=== PATIENT | female | born 1975 | race Caucasian/White ===

== ENCOUNTER → 2018-03-30 | Outpatient (CLI) | payer OTHER ==
[~2018-03-30] MED LIST: HYDACE5 PO; METF500 PO; METO50 PO; OLME20 PO; YASMIN
[2018-03-31 06:27] LABS: Candida species (DNA Probe) Negative (NEGATIVE); G. vaginalis (DNA Probe) Positive (NEGATIVE); T. vaginalis (DNA Probe) Negative (NEGATIVE)
== END ==
LOC: LAB SHORT 17:54 → LAB 17:54
PROVIDERS: Obstetrics & Gynecology
DX: N76.0 Acute vaginitis (principal)
CPT/HCPCS: 87480; 87510; 87660

== ENCOUNTER → 2018-05-18 | Outpatient (CLI) | payer OTHER ==
[2018-05-19 10:40] LABS: Candida species (DNA Probe) Negative (NEGATIVE); G. vaginalis (DNA Probe) Positive (NEGATIVE); T. vaginalis (DNA Probe) Negative (NEGATIVE)
== END | disposition home or self-care (01) ==
LOC: LAB 15:24 → LAB SHORT 15:24
PROVIDERS: Obstetrics & Gynecology
DX: N76.0 Acute vaginitis (principal)
CPT/HCPCS: 87480; 87510; 87660

== ENCOUNTER → 2019-02-11 | Outpatient (CLI) | payer OTHER ==
[2019-02-11 14:19] LABS: Candida species (DNA Probe) Negative (NEGATIVE); G. vaginalis (DNA Probe) Negative (NEGATIVE); T. vaginalis (DNA Probe) Negative (NEGATIVE)
== END | disposition home or self-care (01) ==
LOC: LAB 12:58 → LAB SHORT 12:58
PROVIDERS: Obstetrics & Gynecology
DX: N76.0 Acute vaginitis (principal)
CPT/HCPCS: 87480; 87510; 87660

== ENCOUNTER → 2019-04-01 | Outpatient (CLI) | payer OTHER ==
[~2019-04-01] MED LIST changes: +Budeprion Xl300 MG PO; +Fluvoxamine Ma100 MG PO; +Inderal40 MG PO; +LOSA50 PO; +Ocella Tablet1 EACH PO; +PRAZ5 PO; +SPIR50 PO; +Seroquel Xr400 MG PO; +VITAMIN B122500 MCG PO
[2019-04-01 13:19] LABS: BASOPHILS ABSOLUTE AUTO 0.11 K/mm3 (0.00-0.23); BASOPHILS PERCENT AUTO 1 % (0-2); EOSINOPHILS ABSOLUTE AUTO 0.27 K/mm3 (0.00-0.68); EOSINOPHILS PERCENT AUTO 2 % (0-6); Hematocrit 36.8 % (33.0-51.0); Hemoglobin 11.1 g/dL (11.5-16.0); IMMATURE GRAN ABSOLUTE AUTO 0.06 K/mm3 (0.00-0.10); IMMATURE GRAN PERCENT AUTO 1 % (0-1); LYMPHOCYTES ABSOLUTE AUTO 4.22 K/mm3 (0.84-5.20); LYMPHOCYTES PERCENT AUTO 33 % (21-46); MONOCYTES ABSOLUTE AUTO 0.69 K/mm3 (0.16-1.47); MONOCYTES PERCENT AUTO 5 % (4-13); Mean Corpuscular HGB Conc 30.2 g/dL (31.5-36.5); Mean Corpuscular Volume 76 fL (80-100); NEUTROPHILS ABSOLUTE AUTO 7.46 K/mm3 (1.96-9.15); NEUTROPHILS PERCENT AUTO 58 % (41-73); Platelet Count 416 K/mm3 (150-400); RDW Coefficient Variation 16.9 % (11.7-14.2); Red Blood Cell Count 4.83 M/mm3 (3.80-5.20); White Blood Cell Count 12.81 K/mm3 (4.00-11.30)
[2019-04-01 13:28] LABS: Anion Gap 8 mmol/L (6-16); Blood Urea Nitrogen 12 mg/dL (8-24); Bun/Creatinine Ratio 12.2 (12.0-20.0); CO2, Blood 25 mmol/L (21-32); Calcium, Blood 8.8 mg/dL (8.5-10.1); Chloride, Blood 106 mmol/L (98-108); Creatinine, Blood 0.98 mg/dL (0.40-1.00); Glomerular Filtration Rate >60 (60-); Glucose, Blood 104 mg/dL (70-99); Potassium, Blood 4.5 mmol/L (3.5-5.5); Sodium, Blood 139 mmol/L (136-145)
== END | disposition home or self-care (01) ==
LOC: LAB 11:20 → LAB SHORT 11:20
PROVIDERS: Obstetrics & Gynecology
DX: Z01.812 Encounter for preprocedural laboratory examination (principal); N84.0 Polyp of corpus uteri; N93.9 Abnormal uterine and vaginal bleeding, unspecified; I10 Essential (primary) hypertension; R73.9 Hyperglycemia, unspecified
CPT/HCPCS: 80048; 85025

== ENCOUNTER 2019-04-07 12:45 | Day surgery (SDC) | payer OTHER ==
[~2019-04-07] VITALS: Ht 170.2 cm; Wt 122.6 kg
== END 2019-04-07 15:28 | disposition home or self-care (01) ==
LOC: ORSCSDS 12:45
PROVIDERS: Obstetrics & Gynecology
PROC: 0UDB8ZX Extraction of Endometrium, Via Natural or Artificial Opening Endoscopic, Diagnostic (ICD-10-PCS; principal; 2019-04-07 13:45)
DX: N84.0 Polyp of corpus uteri (principal); N92.0 Excessive and frequent menstruation with regular cycle; I10 Essential (primary) hypertension; K21.9 Gastro-esophageal reflux disease without esophagitis; E66.01 Morbid (severe) obesity due to excess calories; Z68.41 Body mass index [BMI] 40.0-44.9, adult; Z79.899 Other long term (current) drug therapy
CPT/HCPCS: 88305; J1100; J2250; J2405; J2704; J3010

== ENCOUNTER → 2021-05-08 | Outpatient (CLI) | payer OTHER ==
[2021-05-09 17:07] LABS: HPV 16 Negative (Negative); HPV 18 Negative (Negative); HPV OTHER HR TYPES Negative (Negative)
== END | disposition home or self-care (01) ==
LOC: LAB 15:06 → LAB SHORT 15:06
PROVIDERS: Obstetrics & Gynecology
DX: Z01.419 Encounter for gynecological examination (general) (routine) without abnormal findings (principal)
CPT/HCPCS: 87624; G0123

== ENCOUNTER → 2021-07-28 | Outpatient (CLI) | payer OTHER ==
[2021-07-30 09:24] LABS: Stool Occult Bld Immuno 1 Negative (NEGATIVE)
== END | disposition home or self-care (01) ==
LOC: LAB 07:00 → LAB SHORT 07:00
PROVIDERS: Student in an Organized Health Care Education/Training Program
DX: D64.9 Anemia, unspecified (principal)
CPT/HCPCS: 82274

== ENCOUNTER 2022-04-05 18:22 | Inpatient (IN) | payer OTHER ==
[~2022-04-05] VITALS: Ht 172.7 cm; Wt 113.8 kg
[~2022-04-05 18:22] MED LIST changes: +BUPR150ER PO; -Budeprion Xl300 MG PO
[2022-04-05] MEDS ORDERED: CLON1 (18:47)
[2022-04-05 19:17] LABS: Source, Urine Foley catheter
[2022-04-05 19:20] LABS: BASOPHILS ABSOLUTE AUTO 0.06 K/mm3 (0.00-0.23); BASOPHILS PERCENT AUTO 0 % (0-2); EOSINOPHILS PERCENT AUTO 1 % (0-6); Hemoglobin 12.2 g/dL (11.5-16.0); Mean Corpuscular HGB 27.9 pg (26.0-34.0); Mean Corpuscular Volume 85 fL (80-100); Mean Platelet Volume 9.7 fL (9.1-12.4); Platelet Count 360 K/mm3 (150-400); RDW Coefficient Variation 14.3 % (11.7-14.2); RDW Standard Deviation 43.8 fL (35.1-46.3); Red Blood Cell Count 4.38 M/mm3 (3.80-5.20); White Blood Cell Count 16.48 K/mm3 (4.00-11.30)
[2022-04-05 19:22] LABS: IMMATURE GRAN ABSOLUTE AUTO 0.06 K/mm3 (0.00-0.10); IMMATURE GRAN PERCENT AUTO 0 % (0-1); LYMPHOCYTES ABSOLUTE AUTO 6.16 K/mm3 (0.84-5.20); LYMPHOCYTES PERCENT AUTO 37 % (21-46); MONOCYTES PERCENT AUTO 6 % (4-13); NEUTROPHILS PERCENT AUTO 55 % (41-73)
[2022-04-05 19:24] LABS: Appearance, Urine Hazy (Clear); Bilirubin, Urine Neg (Neg); Blood, Urine 1+ (Neg); Color, Urine Yellow (P-Yellow); Glucose Qualitative, Urine Neg (Neg); Ketones, Urine Neg (Neg); Leukocyte Esterase, Urine Neg (Neg); Nitrite, Urine Pos (Neg); Protein, Urine Neg (Neg); Specific Gravity, Urine 1.025 (1.003-1.022); Urobilinogen, Urine NORM (Normal)
[2022-04-05 19:33] LABS: Bacteria Many /hpf; Squamous Epithelial Cells Few /hpf (Few)
[2022-04-05 19:37] LABS: U Amphetamine Screen Not Detected; U Barbituate Screen Not Detected; U Benzodiazapine Screen Not Detected; U Cannabinoids Screen Not Detected; U Cocaine Screen Not Detected; U Methadone Screen Not Detected; U Methamphetamine Screen Not Detected; U Opiates Screen Not Detected; U Phencyclidine Screen Not Detected
[2022-04-05 19:38] LABS: U Buprenorphine Screen Not Detected; U Oxycodone Screen Not Detected; U Propoxyphene Screen Not Detected
[2022-04-05 19:43] LABS: Ethanol (Alcohol), Blood, Med <3 mg/dL; Salicylate <1.7 mg/dL (2.8-20.0); Thyroxine (T4) 8.6 ug/dL (4.8-13.9)
[2022-04-05 19:49] LABS: Alanine Aminotransfer (ALT/SGP 43 U/L (12-78); Albumin, Blood 2.7 g/dL (3.4-5.0); Albumin/Globulin Ratio 0.7 (0.8-1.8); Alk Phos 96 U/L (50-136); Anion Gap 8 mmol/L (6-16); Aspartate Aminotrans (AST/SGOT 26 U/L (12-37); Bilirubin, Total 0.2 mg/dL (0.1-1.0); Blood Urea Nitrogen 13 mg/dL (8-24); CO2, Blood 22 mmol/L (21-32); Calcium, Blood 8.6 mg/dL (8.5-10.1); Chloride, Blood 105 mmol/L (98-108); Creatinine, Blood 0.69 mg/dL (0.40-1.00); Globulin, Blood 3.8 g/dL (2.2-4.0); Glomerular Filtration Rate 109 (60-); Glucose, Blood 108 mg/dL (70-99); Potassium, Blood 4.5 mmol/L (3.5-5.5); Sodium, Blood 135 mmol/L (136-145); Total Protein, Blood 6.5 g/dL (6.4-8.2)
[2022-04-05 19:50] LABS: Acetaminophen, Random <2.0 ug/mL (10.0-30.0)
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
[2022-04-06 03:29] LABS: Bun/Creatinine Ratio 15.8 (12.0-20.0); Calcium, Blood 8.5 mg/dL (8.5-10.1); Creatinine, Blood 0.82 mg/dL (0.40-1.00); Magnesium, Blood 2.4 mg/dL (1.6-2.4); Potassium, Blood 4.2 mmol/L (3.5-5.5)
--- NOTE | 2022-04-06 05:46 | NUR ---
END OF SHIFT SUMMARY NO SIGNIFICANT CHANGES THIS SHIFT. PT HAS SLEPT ALL SHIFT. EASILY AROUSABLE. PT HAS REMAINED NSR WITH RATE 70'S, BP'S STABLE, AND QTC 492. PT REMAINS ON ROOM AIR WITH OXYGEN SATURATIONS 97% WITH RATE 20'S. NS INFUSING AT 100ML/HR. ADAMS CATHETER WITH 350CC IN URINE OUTPUT THIS SHIFT; REMAINS DARK ELLIS WITH FOUL ODOR NOTED. WILL CONTINUE TO MONITOR UNTIL REPORT IS HANDED OFF TO ONCOMING RN.
--- NOTE | 2022-04-06 08:43 | NUR ---
PT A/O X4. AROUSES FROM SLEEP EASILY TO VOICE. SPEECH IS SLURRED. PT STATES SHE IS STILL SUICIDAL AND INTENTIONALLY TOOK EXTRA MEDICATIONS IN A SUICIDE ATTEMPT. PT STATES SHE DOES NOT FEEL THAT RECENT MEDICATION CHANGES HAVE MADE HER ANY MORE DEPRESSED THAN USUAL. PT IS PLEASANT AND COOPERATIVE WITH CARE JUST WITHDRAWN. 1:1 SITTER FOR HIGH RISK SUICIDE.
--- NOTE | 2022-04-06 09:50 | NUR ---
Update: Call placed to Dr. Larson at this time r/t patient's current SI precautions. Informed Dr. Larson that patient has current/active SI, received order to upgrade SI precautions to High. Also received order to transfer to PCU status as patient remains medically stable. Patient calm and cooperative, Dr. Larson agreed no need for 2MD hold at this time.
--- NOTE | 2022-04-06 10:25 | NUR ---
PT IS MEDICALLY STABLE. DOWNGRADED TO PCU STATUS. SUICIDE RISK REMAINS HIGH WITH 1:1 SITTER. PT TAKEN TO PCU 3 VIA BED, NO SIGN OF DISTRESS. REPORT GIVEN TO KRYSTINA SCHULTZ.
--- NOTE | 2022-04-06 11:05 | NUR ---
TRANSFER NOTE: PATIENT TRANSFER TO PCU AT THIS TIME. VERY SLEEPY AND LETHARGIC. ABLE TO STAND AND TRANSFER WITH ONE PERSON ASSIST. UNSTEADY ON FEET. SPEECH SLURRED AND HARD TO UNDERSTAND AT TIMES. HIGH SI PRECAUTIONS IN PLACE. 1:[address] ELY IN TO DO ASSESSMENT. PATIENT STATED "I TRIED TO KILL MYSELF" MULTIPLE TIMES WELL "I WOULD DO IT AGAIN" AND "I DON'T SEE ANY REASON TO LIVE". DAUGHTER AND AT BEDSIDE PROVIDING SUPPORT. ON ROOM AIR SATING ABOVE 94%. TELE SHOWING SINUS RHYTHM WITH HR 70. BP STABLE. NO SIGNS OF EDEMA. QTC WNL. DENIES CHEST PAIN/PRESSURE. DENIES ABDOMINAL PAIN/NAUSEA. ADAMS CATH IN PLACE DRAINING CLEAR/ELLIS URINE. BILATERAL HAND IV'S. NS INFUSING AT 100 ML/HR X1 MORE BAG. DIET ORDERED. NO ISSUES WITH SWALLOWING NOTED. EATING AT THIS TIME. WILL CONTINUE TO MONITOR.
--- NOTE | 2022-04-06 11:11 | NUR ---
UPDATE: SPOKE WITH MARIA DE JESUS ( ) FROM POISON CONTROL. PROVIDED UPDATE INCLUDING: LABS, VITALS, RECENT EKG, AND MENTATION. NO NEW RECCOMENDATIONS AT THIS TIME. PER POISON CONTROL, PATIENT WILL MOST LIKELY REMAIN DROWSY WHICH IS EXPECTED.
[2022-04-06] MEDS ORDERED: BIRTH CONTROL (18:11)
--- NOTE | 2022-04-06 18:28 | NUR ---
PATIENT STATING SHE WANTS TO LEAVE AND THAT BEING IN THE HOSPITAL IS MAKING HER OTHER MENTAL HEALTH ISSUES WORSE. THIS RN OFFERED INTERVENTIONS TO HELP WITH OCD AND OTHER COMPLAINTS. PATIENT STILL ASKING TO LEAVE. THIS RN EDUCATED ON THE SAFETY OF THE PATIENT WITH ACTIVE SI THOUGHTS. CALL PLACED TO DR. ELY. 2 MD HOLD INITIATED. THIS RN AND 2ND RN JELANI HINTON IN TO DISCUSS CIVIL RIGHTS WITH PATIENT. PATIENT REFUSED TO SIGNS AND SAID "THIS IS RIDICULOUS". 1:[address]. PATIENT CONTINUES TO VOICE SI AND THAT SHE WOULD DO IT AGAIN. GELACIO CONSULT IN PLACE. NO ACUTE CHANGES. REMAINS ON ROOM AIR. NO CHANGES TO TELE. DENIES PAIN/NEEDS AT THIS TIME. CALL LIGHT IN REACH WITH SITTER MONITORING. WILL CONTINUE TO MONITOR AND REPORT OFF TO ONCOMING RN.
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
--- NOTE | 2022-04-07 10:09 | NUR ---
UPDATE CALL RECEIVED FROM POISON CONTROL. PT CLEARED FROM POISON CONTROL. IF THEY ARE NEEDED WE CAN CALL TO CONTACT.
[2022-04-07] MEDS ORDERED: PANT20 PO (14:09)
--- NOTE | 2022-04-07 16:54 | NUR ---
END OF SHIFT: PATIENT HAS BEEN DECREASED BY DOCTOR GOPI MAY, DISTRIBUTION SPECIALIST AWARE. PATIENT HOME MEDS HAVE BEEN PUT BACK ON JAN. PATIENT HAS BEEN HAVING SOME ANXIETY AND INCREASED STRESS WITH FAMILY VISITNIG, 1 TO 1 SITTER INTERVENED AND ASK FAMILY MEMBER TO LEAVE, AND PATIENT RESPONDED WELL TO THIS. PATIENT HAS BEEN EDUCATED ON SITUATION, NO CONCERNS OR QUESTIONS AT THIS TIME. WILL CONTINUE TO MONITOR AT THIS TIME. DENIES CHEST PAIN/PRESSURE, SOB, HAS BEEN MILDLY HTN IN THE 150'S PM BLOOD PRESSURE MEDS, AND AM MEDS ORDERED BY RECIEVING RN.
--- NOTE | 2022-04-08 05:30 | NUR ---
SHIFT SUMMARY Assumed care of pt at 1900, a/ox4. Cooperative with care, affect is flat/withdrawn, difficulty with eye contact. Abnormal tongue movements noted. Slowed/slurred speech. Patient was moved to low risk during dayshift. Pt reports no feelings of killing herself. Pt began filling out her suicide safety plan. SBP elevated in 160's, however patient didnt have her home medications this am. Night time medications given and reassessed, SBP 120's. Patient slept most of the night, no acute changes this shift. Will report to dayshift RN.
--- NOTE | 2022-04-08 07:21 | NUR ---
NURSING PCU DAYSHIFT: Assumed care of pt at approx 0700. A/O, pleasant though slightly withdrawn cooperative w/care. Denies any SI at this time. C/O 6/10 low back pain r/t positioning in bed. Ambulates independently and w/o difficulty. Speech is slightly slurred which pt states is baseline. Skin intact w/scratch noted to L eyebrow. HRR, no c/o CP/pressure, SBP 130's, no noted edema. L/S cta t/o, O2 sat upper 90's on RA, denies dyspnea, no noted cough. Abd SNT, BT+, voiding w/o difficulty. 20G PIV to LH s/l. No s/s of acute distress this a.m. Pt hopeful for discharge home today. Denies any current needs or questions regarding plan of care. Denies safety needs at this time. Awaiting rounding from PMD, call light in reach, cont to monitor for any changes.
[2022-04-08] MEDS ORDERED: DOXY100 PO (11:42)
[2022-04-08] MEDS ORDERED: VISBIOME 112.51 EACH PO (11:42)
--- NOTE | 2022-04-08 13:01 | NUR ---
NURSING PCU DISCHARGE SUMMARY: No acute changes t/o the a.m. Seen by PMD and psych, discharge home d/o received, f/u appts scheduled, rx's called to pharmacy. PIV dc'd w/cath intact, discharge instructions discussed. Pt denied any questions regarding discharge plan, ambulated from unit at approx 1245 accompanied by and daughter, no s/s of acute distress at that time.
== END 2022-04-08 12:42 | disposition home or self-care (01) | DRG 917 ==
LOC: ER 18:22 → ICUW 18:23 → PCU 04-06 10:26
PROVIDERS: Emergency Medicine; ADMIT Hospitalist
DX: T43.592A Poisoning by other antipsychotics and neuroleptics, intentional self-harm, initial encounter (principal); G92.8 Other toxic encephalopathy; N39.0 Urinary tract infection, site not specified; E83.42 Hypomagnesemia; B96.20 Unspecified Escherichia coli [E. coli] as the cause of diseases classified elsewhere; E66.01 Morbid (severe) obesity due to excess calories; F32.A Depression, unspecified; F41.9 Anxiety disorder, unspecified; R94.31 Abnormal electrocardiogram [ECG] [EKG]; F43.10 Post-traumatic stress disorder, unspecified; G47.00 Insomnia, unspecified; Z68.38 Body mass index [BMI] 38.0-38.9, adult; I10 Essential (primary) hypertension; R73.03 Prediabetes; Z87.891 Personal history of nicotine dependence; Z88.8 Allergy status to other drugs, medicaments and biological substances; Z79.899 Other long term (current) drug therapy
CPT/HCPCS: 36415; 51702; 70450; 71045; 80048; 80053; 81001; 81025; 83735; 84436; 84443; 84484; 85025; 87077; 87086; 87186; 93005; 93010; 96365; 96372; 96374; 96375; 99285-25; A9270; G0378; G0480; J0696; J1650; J3475; J7030